=== PATIENT | male | born 1935 | race Caucasian/White ===

== ENCOUNTER 2019-09-05 12:47 | Observation (INO) | payer MEDICARE, OTHER ==
[~2019-09-05] VITALS: Ht 182.9 cm; Wt 110.0 kg
--- NOTE | 2019-09-05 12:47 | NUR ---
PATIENT BROUGHT IMMEDIATELY TO ROOM AND PHYSICIAN AT BEDSIDE FOR EVAL. PATIENTS FAMILY STATES LOW HEART RATE FOR PAST COUPLE OF HOURS PRIOR TO ARRIVAL. PATIENT DENIES ANY PAIN OR SOB AT THIS TIME
--- NOTE | 2019-09-05 13:34 | NUR ---
PATIENT RESTING AWAITNG LAB AND RADIOLOGY RESULTS. PATIENT DENIES ANY PAIN OR SOB AT THIS TIME. 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
[2019-09-05 14:17] LABS: HEMATOCRIT 42.9 % (39.0-50.0); HEMOGLOBIN 14.2 g/dl (14.0-18.0); IMMATURE GRANULOCYTES 0.3 % (0.0-5.0); MEAN CELL VOLUME 94.7 fL CALC (80.0-100.0); MEAN CORPUSCULAR HGB 31.3 pG CALC (26.0-32.0); MEAN CORPUSCULAR HGB CONC 33.1 g/L CALC (32.0-36.0); NEUT# 6.2 thou/uL (1.82-7.42); RED BLOOD COUNT 4.53 mill/uL (4.70-6.10); RED CELL DISTRI WIDTH 13.6 % (11.5-15.5)
--- NOTE | 2019-09-05 14:25 | NUR ---
PATIENT RESTING AWAITING LAB RESULTS. PATIENT DENIES ANY PAIN OR DISCOMFORT AT THIS TIME. PATIENT DENIES ANY SOB AT THIS TIME
[2019-09-05 14:30] LABS: ANION GAP 10 (6-22 (CALC)); BUN 21 mg/dL (8-23); BUN/CREATININE RATIO 25 (12-20 (CALC)); CARBON DIOXIDE 30 mmol/l (22-30); CHLORIDE 103 mmol/l (95-108); CREATININE 0.8 mg/dL (0.7-1.3); GFR > 60 ML/MIN (>=60 (CALC)); GFR FOR AFR.AMER. > 60 ML/MIN (>=60 (CALC)); POTASSIUM 4.3 mmol/l (3.5-5.1); SODIUM 139 mmol/l (137-146)
--- NOTE | 2019-09-05 15:30 | NUR ---
PATIENT RESTING AWAITING ROOM ASSIGNMENT. PATIENT DENIES ANY PAIN OR DISCOMFORT AT THIS TIME. PATIENT DENIES ANY SOB AT THIS TIME. MD NOTIFIED
--- NOTE | 2019-09-05 16:26 | NUR ---
PATIENT RESTING AWAITING ROOM ASSIGNMENT. PATIENT DENIES ANY PAIN OR SOB AT THIS TIME. FAMILY AT BEDSIDE
--- NOTE | 2019-09-05 17:35 | NUR ---
PATIENT TAKEN TO ICU REPORT GIVEN BEDSIDE
--- NOTE | 2019-09-05 17:36 | NUR ---
PT ARRIVES VIA [facility] WITH GEOFFREY SWAN IN STABLE CONDITION. ASSESMENT COMPLETED AT THIS TIME. IV FLUSHES WELL. PT ORIENTED TO CALL [facility] AND ROOM. ISTRUCTED TO CALL FOR ANY NEEDS. WILL CONTINUE TO MONITOR.
[2019-09-05 18:00] VITALS: BP 128/90
[2019-09-05 20:00] VITALS: BP 136/90
--- NOTE | 2019-09-05 20:00 | NUR ---
REPORT RECEIVED ROUNDS MADE AND INITIAL ASSESSMENT COMPLETE REFER TO FLOWSHEET FOR SPECIFICS. HS CARE WITH ASSIST. URINAL AT BEDSIDE. PLAN OF CARE, FALL PRECAUTIONS, AND ALL ROOM CONTROLS REVIEWED WITH PT. REMAINS ON TELEMETRY IN SINUS RATE 80S WITH FIRST DEGREE AND BBB VISIBLE.
[2019-09-06 00:20] VITALS: BP 145/80
--- NOTE | 2019-09-06 00:20 | NUR ---
RESTING QUIETLY IN ROOM WITH EYES CLOSED FACE RELAXED. VITAL SIGNS REMAIN STABLE WITH NO CHANGE IN HEART RATE OR RHYTHM FROM PREVIOUS DOCUMENTATION. IVF OF NS CONT AT 100/HR ORDERED. VOIDS IN BEDSIDE URINAL. FLUIDS EASILY ACCESSIBLE AT BEDSIDE. WILL CONTINUE TO MONITOR.
[2019-09-06 04:10] VITALS: BP 121/64
--- NOTE | 2019-09-06 04:32 | NUR ---
RESTING ON AND OFF THROUGH THE NIGHT. TAKING IN IV AND PO FLUIDS WELL. VOIDING IN URINAL. VS REMAIN STABLE. NO CHANGE IN PREVIOUS ASSESSMENT. WILL CONTINUE TO MONITOR.
[2019-09-06 06:29] LABS: MAGNESIUM 1.9 mg/dL (1.6-2.3)
--- NOTE | 2019-09-06 06:55 | NUR ---
report recvd from tammi alvarez at start of shift.
--- NOTE | 2019-09-06 07:35 | NUR ---
pt awake, reading a book in bed. friendly with staff. 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 trace edema to lle. 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 clear speech. eyes perrla. a&oX4. pt denies s/s of bradycardia. nsr with occassional bigeminy on tele in 70's. abd soft/nontender/active bs. strong pulses X4. breathing even/unlabored, lungs cta.
[2019-09-06 08:00] VITALS: BP 173/73
--- NOTE | 2019-09-06 08:34 | NUR ---
DR DORANTES @BEDSIDE FOR ASSESSMENT, DISCUSSING POC.
--- NOTE | 2019-09-06 09:09 | NUR ---
IV DC'D, TIP INTACT, PRESSURE DRESSING APPLIED. DC PENDING APPT WITH DR SANDHU, PT AWARE.
--- NOTE | 2019-09-06 09:20 | NUR ---
CALLED DR MORGAN OFFICE FOR [facility] APPT & LOOP MONITOR. MADE APPOINTMENT FOR 09/20/19 @ 09:15. THEY ASKED IF PT CAN STOP BY OFFICE AFTER DC TO SET UP NEW PT.
--- NOTE | 2019-09-06 09:34 | NUR ---
AKYE DAHL CM, @BEDSIDE.
[2019-09-06] MEDS ORDERED: LOSARTAN POTASS25 MG PO (10:00)
[2019-09-06] MEDS ORDERED: ADLT ASA LOW81 MG PO (10:00)
--- NOTE | 2019-09-06 11:11 | NUR ---
olive @bedside. pt/olive educated on dc instructions including f/up care & new rx X2.
[2019-09-06 11:23] VITALS: BP 178/75
--- NOTE | 2019-09-06 11:31 | NUR ---
PT OUT THE DOOR WITH STAFF & NEICE IN WC WITH ALL BELONGINGS.
== END 2019-09-06 11:31 | disposition home or self-care (01) ==
LOC: ED 12:47 → ED-I 15:47 → ED 16:02 → ICU 16:12
PROVIDERS: Family Medicine; ADMIT Internal Medicine; ATTEND Internal Medicine
DX: R00.1 Bradycardia, unspecified (principal); I44.7 Left bundle-branch block, unspecified; I10 Essential (primary) hypertension; I69.954 Hemiplegia and hemiparesis following unspecified cerebrovascular disease affecting left non-dominant side; E78.5 Hyperlipidemia, unspecified; Z79.82 Long term (current) use of aspirin